=== PATIENT | male | born 1950 | race Caucasian/White ===

== ENCOUNTER 2016-07-19 13:35 | Emergency (ER) | payer BC, MEDICARE ==
[2016-07-19 14:10] VITALS: BP 167/116
[2016-07-19 14:10] LABS: Hematocrit 43.8 % (42.0-52.0); Hemoglobin 15.5 gm/dL (13.5-18.0); Mean Cell Volume 81.9 fl (78-100); Mean Corpuscular Hgb Conc 35.4 g/dl (32-36); Mean Platelet Volume 8.9 fl (6.0-9.5); Neutrophil # 8.3 K/mm3 (1.3-6.0); Neutrophil % 93.3 % (42-75.0); Platelet Count 142 K/mm3 (150-450); Red Blood Count 5.35 M/mm3 (4.7-6.0); Red Cell Distribution Width 13.1 % (11.5-14.0)
--- NOTE | 2016-07-19 14:13 | ERNOTE ---
Neuro HPI ER Record Presenting Symptoms: impaired speech Time Seen by Provider: 07/19/16 13:40 Source: patient Exam Limitations: clinical condition Immunizations: IMMUNIZATION HX Immunizations Up to Date No History of Influenza Vaccine Yes Hx Pneumococcal Vaccination No Allergies/Adverse Reactions: Allergies Allergy/AdvReac Type Severity Reaction Status Date / Time No Known Allergies Allergy Verified 07/19/16 14:14 Home Medications: HOME MEDICATIONS Aspirin [Aspirin Enteric Coated] 81 mg PO DAILY 09/03/15 [Last Taken Unknown] Gluc 2Kcl/Chondr/Rita Hy/Hy AC [Glucosamine & Chondroitin Cap] 1 each PO DAILY 09/03/15 [Last Taken Unknown] Metoprolol Succinate [Toprol Xl] 100 mg PO DAILY 09/03/15 [Last Taken Unknown] [place]-3 Fatty Acids/Fish Oil [Fish Oil 1,000 mg Capsule] 1 each PO DAILY [Last Taken Unknown] Pravastatin Sodium [Pravachol] 20 mg PO HS 09/03/15 [Last Taken Unknown] Cholecalciferol [Vitamin D] 1,000 unit PO DAILY 12/02/15 [Last Taken Unknown] Ferrous Sulfate 325 mg PO DAILY 12/02/15 [Last Taken Unknown] Megestrol Acetate [Megace Suspension] 400 mg PO DAILY #1 btl 12/05/15 [Last Taken Unknown] Mirtazapine [Remeron] 30 mg PO HS #30 tablet 12/05/15 [Last Taken Unknown] Insulin Glargine,Hum.rec.anlog [Lantus Solostar] 10 unit SQ HS 01/04/16 [Last Taken Unknown] Pantoprazole Sodium 40 mg PO DAILY 01/04/16 [Last Taken Unknown] Sucralfate [Carafate Suspension] 1 g PO ACHS 01/04/16 [Last Taken Unknown] - History of Present Illness Narrative: Patient complained to about headache around 08:00 when waking up, at that time he was communicating normally. His went to work around 09:30, tried calling him later and when he did not answer the phone send the neighbor to check on him around 12:30. He did not make any sense and spoke word salad at that time He was diagnosed with esophageal cancer summer 2015, treated with radiation and chemo, no surgery as he also developed DVT's and massive PE's, he has a filter and is on eliquis and aspirin. states that he head a check up in May and at that time 'everything was fine'. Last Date Known Well: 07/19/16 Last Time Known Well: 09:30 Onset: cannot confirm onset - Character of Deficits Additional Deficits: Present: impaired speech Baseline Cognition: Present: alert, oriented x 4 Baseline Gait: Present: walks w/o assistance Prior Treament: Denies: recently seen, similar symptoms before Review of Systems - Narrative Narrative: unable to obtain - Patient's Past Medical History Patient History - Medical: Diabetes Type 2 Insulin Dependent, Renal Disease Patient History - Cardiac/Respiratory: Hypertension, Hyperlipidemia, Hyperlipidemia, Pulmonary Embolism Patient History - Cancer: Esophageal Patient History - Surgical Procedures: Cancer Surgery, Colonoscopy, EGD - Family History Father Family History - Medical: , No pertinent hx Family History - Cardiac/Respiratory: Cardiac Arrest Family History - Cancer: Prostate Mother Family History - Medical: - Social History Living Situations: home Does anyone smoke in the home?: No Alcohol Use: rarely Drug Use: none - Immunizations Immunizations Up to Date: Yes Physical Exam - Physical Exam General Appearance: Present: wd/wn, alert, no apparent distress Eye Exam: Normal inspection: bilateral, PERRL: bilateral Ears, Nose, Throat: Present: normal ENT inspection, normal pharynx Neck: Present: normal inspection, nontender, supple. Absent: carotid bruit Respiratory: Present: no respiratory distress, normal breath sounds, no accessory muscle use, lungs clear Cardiovascular/Chest: Present: no murmur, tachycardia Gastrointestinal/Abdominal: Present: nondistended, soft Neurological Exam: Present: alert, other - moves all extremities, doesn't follow commands, when hands are elevated in front of him, no drift, when asked about his name or place uses real words but inappropiate answer Skin Exam: Present: normal color, warm/dry Initial Stroke Assessment - NIH Stroke Scale Level of Consciousness: Alert Facial Palsy: Normal movement Right Arm Motor (10 sec hold): No drift Left Arm Motor (10 sec hold): No drift Language Aphasia (description/naming/reading): Severe not understandable Dysarthria (speech clarity): Normal articulation ED Progress - Results and Orders Patient's Lab Results:: I have reviewed the patient's lab results. - Vital Signs Patient's Vital Signs:: I have reviewed the patient's vital signs. - EKG EKG: NSR - sinus tachycardia EKG read: Interp. by me - Progress/Reassessment Progress Note-Subjective: 07/19/16 14:[address] discussed with radiologist: no acute findings discussed diagnosis with and possible transfer, agreed with transfer to [facility] 07/19/16 14:14 call to [facility] 07/19/16 14:[address] Felix from the stroke team, TPA not indicated, but patient might be a candidate for intravascular intervention, recommended transfer by air keep patient flat, 18 gauge in AC, IV fluids, tolerate blood pressure up to 200 systolic 07/19/16 14:40 patient restless, wants to sit up, still not following commands, mumbles about hospitals 07/19/16 15:19 air evac here to [employer] patient symptoms unchanged Departure Clinical Impression: CVA (cerebral vascular accident) Qualifiers: CVA mechanism: unspecified Qualified Code(s): I63.9 - Cerebral infarction, unspecified - Departure Disposition: [facility] Condition: Fair Referrals: Dejuan Herring DO [Primary Care Provider] -
[2016-07-19 14:17] LABS: Prothrombin Time (Patient) 10.7 Seconds (9.4-11.4)
[2016-07-19 14:18] LABS: INR 1.03 INR (0.90-1.10); Partial Thrombolplastin Time 24.7 Seconds (24-32)
[2016-07-19 14:24] LABS: Albumin * 3.6 gm/dl (3.4-5.0); BUN/Creatinine Ratio 8.9 (9.0-21.6); Bilirubin, Total 0.7 mg/dL (0.0-1.1); Ca. Corrected For Albumin 9.8 mg/dL (8.4-10.2); Calcium * 9.8 mg/dL (7.9-10.9); Carbon Dioxide 27.6 mmol/L (24-32.6); Potassium 3.6 mmol/L (3.4-4.6); Total Protein 7.5 gm/dL (6.2-8.2)
[2016-07-19] MEDS ORDERED: NORMAL SALINE 1,000 ML IV ONE (14:30)
== END 2016-07-19 15:03 | disposition short-term general hospital (02) ==
LOC: ER 13:35
DX: I63.9 Cerebral infarction, unspecified (principal); Z85.01 Personal history of malignant neoplasm of esophagus